=== PATIENT | female | born 1950 | race Caucasian/White ===

== ENCOUNTER → 2017-01-21 | Outpatient (CLI) | payer OTHER ==
--- NOTE | 2017-01-21 09:12 | DIAGNOSTIC IMAGING REPORT ---
RENAL ULTRASOUND HISTORY: Dysuria. COMPARISON: None. FINDINGS: Right kidney: 10.2 cm. No hydronephrosis. Mild fullness within the neck pelvis. Normal corticomedullary differentiation and cortical thickness. Left kidney: 9.8 cm. No hydronephrosis. Normal corticomedullary differentiation and cortical thickness. Bladder: No bladder wall thickening. The bilateral ureteral jets were identified. IMPRESSION: Normal renal ultrasound. Electronically signed by: Elliot Black M.D. 01/21/2017 9:11 AM Dictated Date/Time: 01/21/2017 9:10 AM
== END | disposition home or self-care (01) ==
LOC: C.ULTR 08:07
PROVIDERS: ATTEND Urology
DX: R30.0 Dysuria (principal)